=== PATIENT | male | born 1945 | race Caucasian/White ===

== ENCOUNTER → 2016-12-26 | Outpatient (CLI) | payer MEDICARE, BC, OTHER ==
[~2016-12-26] MED LIST: /WARF25TA PO; ALBU17IN INH; ASPI325T PO; ASPI81TA7 PO; ATEN25TA PO; ATENPOW OR; ATIV1TAB10 PO; CINN500C9 PO; CINN500T PO; CLIN300C PO; CLOP75TA2; CLOP75TA2 PO; DIOV320T PO; DOCU10CA PO; Docusate Sod/Senna PO; FENO54TA2 PO; FISH OIL OMEGA OR; FISH OIL OR; FOLI1TAB86 PO; GABA-279 PO; GABA100C PO; LIVA2TAB PO; MILKSUS PO; MIRA3350 PO; MULTTAB4 PO; MYCOLOG TOP; NYST100024 TOP; OMEGA OR; OMEP40CA2 PO; PERCOCET PO; RAPA8CAP PO; SENO8.6T2 PO; TYLE325T5 PO; ULTR50TA PO; VALS1TAB49 PO; ZETI10TA2 PO; [UNRECOGNIZED DRUG - OTHER] OR; [UNRECOGNIZED DRUG - OTHER] OR; acetaminophen OR; fenofibrate
== END ==
LOC: M SMT 13:31
PROVIDERS: ATTEND Urology
DX: Z85.46 Personal history of malignant neoplasm of prostate (principal)

== ENCOUNTER 2017-07-20 01:36 | Observation (INO) | payer MEDICARE, BC, OTHER ==
[~2017-07-20] VITALS: Ht 172.7 cm; Wt 105.8 kg
[~2017-07-20 01:36] MED LIST changes: -NYST100024 TOP; +NYST1POW9 TOP; -SENO8.6T2 PO; +SENO8.6T5 PO; -ULTR50TA PO; +ULTR50TA8 PO; -ZETI10TA2 PO; +ZETI10TA30 PO
[2017-07-20] MEDS ORDERED: CLOP75TA2 PO (01:54)
[2017-07-20] MEDS ORDERED: TYLE1TAB5 PO (01:54)
[2017-07-20] MEDS ORDERED: TYLE500T78 PO (01:54)
[2017-07-20] MEDS ORDERED: GABA-282 PO (01:54)
[2017-07-20] MEDS ORDERED: ADENOSINE 6MG/2ML INJECTION (J0153) IV STA ×3 (01:55)
[2017-07-20] MEDS ORDERED: RAPA8CAP PO (01:57)
[2017-07-20] MEDS ORDERED: ZETI10TA30 PO (02:03)
[2017-07-20 02:08] LABS: BASO % 0.5 % (0.0-1.0); EOS # 0.2 10^3/uL (0.0-0.50); EOS % 4.2 % (0.0-3.0); IMMATURE GRANULOCYTE % 0.3 % (0-0); LYMPH # 1.4 10^3/uL (1.5-4.5); LYMPH % 24.7 % (24.0-44.0); MEAN CORPUSCULAR HEMOGLOBIN 28.9 pg (27.0-33.0); MEAN CORPUSCULAR HGB CONC 32.6 g/dl (32.0-36.5); MEAN CORPUSCULAR VOLUME 88.8 fl (80.0-96.0); MONO # 0.8 10^3/uL (0.0-0.8); MONO % 13.2 % (0.0-5.0); NEUTROPHILS # 3.3 10^3/uL (1.8-7.7); NEUTROPHILS % 57.1 % (36.0-66.0); PLATELET COUNT, AUTOMATED 306 10^3/uL (150-450); RED CELL DISTRIBUTION WIDTH 14.7 % (11.5-14.5); WHITE BLOOD COUNT 5.8 10^3/uL (4.0-10.0)
[2017-07-20] MEDS: METOPROLOL 5 MG/5 ML VIAL IV SCH ×5 (02:26→07:11)
[2017-07-20 02:33] LABS: ANION GAP 12 MEQ/L (8-16); BLOOD UREA NITROGEN 15 MG/DL (7-18); CALCIUM LEVEL 8.8 MG/DL (8.8-10.2); CARBON DIOXIDE LEVEL 26 MEQ/L (21-32); CHLORIDE LEVEL 103 MEQ/L (98-107); CREATININE FOR GFR 1.09 MG/DL (0.70-1.30); GLOMERULAR FILTRATION RATE > 60.0 (>42); GLUCOSE, FASTING 168 MG/DL (83-110); POTASSIUM SERUM 4.1 MEQ/L (3.5-5.1); SODIUM LEVEL 141 MEQ/L (136-145)
--- NOTE | 2017-07-20 02:34 | REP ---
Clinical: Chest pain . Comparison: 04/15/2015 . Findings: Examination is limited by underpenetration which accentuates the pulmonary vasculature and interstitium. The mediastinum and cardiac silhouette are stable and within normal limits for portable technique. No definite focal consolidation. No obvious effusion or pneumothorax. Impression: Limited by underpenetration. No obvious focal consolidation or effusion. Signed by Jamie Crow MD 07/20/2017 02:25 A
[2017-07-20 02:50] VITALS: BP 102/80
[2017-07-20] MEDS ORDERED: NS 1,000 ML IV ONE (03:00)
[2017-07-20] MEDS ORDERED: DIGOXIN INJ 0.5 MG/2 ML AMP (J1160) IV STA (05:38)
[2017-07-20] MEDS: GABAPENTIN 300 MG CAP PO SCH ×2 (09:00→20:37)
[2017-07-20] MEDS ORDERED: TAMSULOSIN 0.4 MG CAP PO SCH (09:00)
[2017-07-20] MEDS ORDERED: ACETAMINOPHEN TAB 650MG DOSE (2X325MG) PO PRN (09:45)
[2017-07-20] MEDS ORDERED: ONDANSETRON 4MG/2ML VIAL (J2405) IV PRN (09:45)
--- NOTE | 2017-07-20 09:45 | ECGEPIP ---
Stationary ECG Study [facility] - ED Test Date: 2017-07-20 Pat Name: GRETA SANDERS Department: Room: - Gender: M Retail Equipment Associate: JEAN : 1945 Requested By: Wilber Diana Order Number: [id number] Reading MD: Wilber Burnett Measurements Intervals [place] Rate: 168 P: [place]: 0 QRS: -21 QRSD: 165 T: 2 QT: 305 QTc: 511 Interpretive Statements UNCERTAIN REGULAR RHYTHM, SUSPECT SVTT VS. ATRIAL FIBRILLATION/FLUTTER INDETERMINATE AXIS RIGHT BUNDLE BRANCH BLOCK ST DEPRESSION, CONSIDER SUBENDOCARDIAL INJURY RHYTHM CHANGE COMPARED TO 04/15/15 Electronically Signed On 07-20-2017 9:44:52 EST by Wilber Burnett
[2017-07-20] MEDS ORDERED: ISOVUE-370 76% 100ML VIAL (Q9967) As Ordered ONE (09:50)
[2017-07-20] MEDS ORDERED: ACET1TAB17 PO (11:02)
--- NOTE | 2017-07-20 11:13 | ECGEPIP ---
Stationary ECG Study [facility] - ED Test Date: 2017-07-20 Pat Name: GRETA SANDERS Department: Room: - Gender: M Etl Informatica Developer: sb : 1945 Requested By: Wilber Diana Order Number: [id number] Reading MD: Yadira Banks Measurements Intervals [place] Rate: 66 P: -9 [place]: 139 QRS: 2 QRSD: 140 T: -17 QT: 421 QTc: 443 Interpretive Statements SINUS RHYTHM WITH OCCASIONAL VENTRICULAR PREMATURE COMPLEXES INDETERMINATE AXIS RIGHT BUNDLE BRANCH BLOCK RHYTHM CHANGE COMPARED 1:51 Electronically Signed On 07-20-2017 11:13:37 EST by Yadira Banks
--- NOTE | 2017-07-20 13:10 | HPEPDOC ---
General Date of Admission Jul 20, 2017 at 09:33 Primary Care Physician: Ray Long Attending Physician: KYLE ALCANTARA MD Chief Complaint The patient is a 71-year-old male admitted with a reason for visit of SVT ( Supraventricular Tachycardia). Source: Patient, Family, RN notes reviewed, Old records Exam Limitations: No limitations Timing/Duration: 24 hours Associated Symptoms: Diaphoresis, Nausea History of Present Illness Mr. Perla is a 71-year-old male who presents to [facility] Emergency Department with Past medical history is significant for: coronary artery disease, dyslipidemia, gastroesophageal reflux disease, benign prostatic hyperplasia, history of prostatic adenocarcinoma status-post radiation, history of urinary tract infection, osteoarthritis, history of adenomatous polyp, history of cerebrovascular accident in 2015, history of colonic angioectasia, history of diverticulosis, history of right knee medial meniscus tear. Patient reports that he was watching [employer] on television last evening at approximately 10:45PM. He went to bed shortly thereafter, but woke up at about 1:00AM feeling clammy and sweaty. He could feel his heart beating in his chest. He called to his , who was awake, stating that he did not feel so good. She advised him to sit in his chair to see if that would provide relief. He moved back and forth between bed and chair, but could not gain adequate relief. He felt extremely nauseous, but did not vomit. No abdominal pain. He felt uncomfortable. At that point EMS was called and patient was transported to the hospital for further evaluation. Patient states that this has never happened before. Emergency Department evaluation revealed supraventricular tachycardia on EKG. Patient was given two doses of Adenosine which did not sonia the arrhythmia. He was then given Metoprolol and Digoxin which appeared to decrease the heart rate. Troponins were initially within normal range, but did increase. Patient admits to a cough productive of white phlegm and chronic pain secondary to arthritis. All other review of systems were negative besides those listed above. Hospitalist service was consulted for patient to be admitted for further medical management. Home Medications Scheduled (Tylenol Pm Extra Strength 500-25 mg) 1 Tab Tab, 1 TAB PO QHS, (Reported) TAKES WITH 325MG TYLENOL Acetaminophen (Tylenol Extra Strength) 500 Mg Tab, 500 MG PO DAILY, (Reported) Acetaminophen (Acetaminophen) 325 Mg Tab, 325 MG PO QHS, (Reported) TAKES WITH TYLENOL PM Clopidogrel Bisulfate (Clopidogrel) 75 Mg Tab, 75 MG PO DAILY, (Reported) Ezetimibe (Zetia) 10 Mg Tab, 10 MG PO DAILY, (Reported) Gabapentin (Gabapentin) 300 Mg Cap, 300 MG PO BID, (Reported) Omeprazole (Omeprazole) 40 Mg Cap, 40 MG PO DAILY, (Reported) Silodosin (Rapaflo) 8 Mg Cap, 8 MG PO DAILY, (Reported) Allergies Coded Allergies: Celecoxib (Unverified Allergy, Unknown, RASH, ITCHING, 11/20/12) Niacin (Verified Allergy, Unknown, 04/29/15) Past Medical History Medical History 1. Coronary artery disease 2. Dyslipidemia 3. Gastroesophageal reflux disease 4. Benign prostatic hyperplasia 5. History of prostatic adenocarcinoma status-post radiation 6. History of urinary tract infection 7. Osteoarthritis 8. History of adenomatous polyp 9. History of cerebrovascular accident in 2014 10. History of colonic angioectasia 11. History of diverticulosis 12. History of right knee medial meniscus tear Surgical History 1. Right knee partial medical menisectomy 2. Right finger open fracture reduction 3. Left hallux fusion 4. Right hallux dorsal cheilectomy 5. Umbilical herniorrhaphy (2009) 6. Colonoscopy (2011, 2012) 7. Total left knee arthroplasty (2011) 8. Total left hip arthroplasty (2014) 9. Echocardiogram (2005, 2014) 10. Appendectomy 11. Bilateral carpal tunnel surgery 12. Coronary angiogram Family History Father: , 58, suicide Mother: , 58, gangrene, bowel perforation Siblings: - Sister: Alive, 64, arthritis Children: - Son: Alive, 52, healthy - Daughter: Alive, 50, healthy - Daughter: Alive, 53, healthy Social History * Smoker: former Smoker Alcohol: heavy (3-4 glasses of wine per day; sometimes additional beer) Drugs: marijuana (Once every 2-3 months) Pets in the home: Dog(s) (1 dog), Cat(s) (1 cat) Occupation: Retired; formerly body/fender work Lives with: Pets: 1 cat, 1 dog Alcohol: 3-4 glasses of wine per day; sometimes additional beer; history of 10- 12 drinks per day Tobacco: 30 pack-year history; 10 years of cigar/pipe smoking, smokeless tobacco Drugs: Marijuana use once every 2-3 months; denies other Travel: No recent travel Caffeine: 3-4 cups of caffeine per day Review of Symptoms Constitutional: Denies: Chills, Fever, Night Sweats, Fatigue, Weight Loss Eyes: Denies: Pain, Vision change ENT: Denies: Head Aches, Ear Pain, Dysphagia, Sinus Congestion, Post Nasal Drip , Sore Throat, Epistaxis Skin: Reports: Bruising (Right hand due to anesthesia s/p CVA), Denies: Rash, Lesions, Breakdown Pulmonary: Denies: Dyspnea, Cough, Pleuritic Chest Pain Cardiovascular: Denies: Chest Pain, Palpitations, Orthopnea, Paroxysmal Noc. Dyspnea, Lt Headedness Gastrointestinal: Denies: Nausea, Vomiting, Abdominal Pain, Diarrhea, Constipation, Melena, Hematochezia Genitourinary: Denies: Dysuria, Frequency, Incontinence, Hematuria, Retention Hematologic: Denies: Bruising, Bleeding Excessively, Enlarged Lymph Nodes Endocrine: Denies: Polydipsia, Polyphagia, Polyuria Musculoskeletal: Denies: Neck Pain, Back Pain, Joint Pain, Muscle Pain, Spasms Neurological: Reports: Weakness (Residual right hand fine motor weakness s/p CVA in 2014), Denies: Numbness, Change in speech, Confusion Psych: Reports: Mood Normal, Denies: Depression, Memory Issues Physical Examination General Exam: Positive: Alert, No Acute Distress Eye Exam: Positive: PERRLA, Conjunctiva & lids normal, EOMI, Negative: Sclera icteric ENT Exam: Positive: Atraumatic, Mucous membr. moist/pink, Pharynx Normal Neck Exam: Positive: Supple, Negative: JVD, thyromegaly Chest Exam: Positive: Clear to auscultation, Normal air movement Heart Exam: Positive: Rate Normal, Regular Rhythm, Normal S1, Normal S2, Negative: Murmurs, Rubs Telemetry: Positive: Sinus, Bradycardia Abdomen Exam: Positive: Normal bowel sounds, Soft, Negative: Tenderness, Hepatospenomegaly Extremity Exam: Positive: Normal pulses, Negative: Clubbing, Cyanosis, Edema Skin Exam: Positive: Nl turgor and temperature, Negative: Breakdown, Lesion Neuro Exam: Positive: Normal Gait (Walks with cane s/p CVA (2014)), Normal Speech, Cranial Nerves 3-12 NL, Reflexes 2+ Psych Exam: Positive: Mental status NL, Mood NL, Oriented x 3 Other physical findings Chest X-Ray Impression: Limited by underpenetration. No obvious focal consolidation or effusion. Vital Signs Vital Signs Date Time Temp Pulse Resp B/P (MAP) Pulse Ox O2 Delivery O2 Flow Rate FiO2 07/20/17 10:05 98.9 60 16 158/85 (109) 97 Room Air Height (in): 68 Weight (kg): 109 BMI (kg): 36.5 Laboratory Data Labs 24H Laboratory Tests 2 07/20/17 02:02: Immature Granulocyte % (Auto) 0.3H, White Blood Count 5.8, Red Blood Count 5.08 , Hemoglobin 14.7, Hematocrit 45.1, Mean Corpuscular Volume 88.8, Mean Corpuscular Hemoglobin 28.9, Mean Corpuscular Hemoglobin Concent 32.6, Red Cell Distribution Width 14.7H, Platelet Count 306, Neutrophils (%) (Auto) 57.1, Lymphocytes (%) (Auto) 24.7, Monocytes (%) (Auto) 13.2H, Eosinophils (%) (Auto) 4.2H, Basophils (%) (Auto) 0.5, Neutrophils # (Auto) 3.3, Lymphocytes # (Auto) 1.4L, Monocytes # (Auto) 0.8, Eosinophils # (Auto) 0.2, Basophils # (Auto) 0.0, Immature Granulocyte # (Auto) 0.0, Nucleated Red Blood Cells % (auto) 0.0, Anion Gap 12, Glomerular Filtration Rate > 60.0, Blood Urea Nitrogen 15, Creatinine 1.09, Sodium Level 141, Potassium Level 4.1, Chloride Level 103, Carbon Dioxide Level 26, Calcium Level 8.8, Total Creatine Kinase 148, Creatine Kinase MB 2.1, Creatine Kinase MB Relative Index 1.41, Troponin I < 0.02, Thyroid Stimulating Hormone (TSH) 3.970H 07/20/17 04:02: Total Creatine Kinase 140, Creatine Kinase MB 2.2, Creatine Kinase MB Relative Index 1.57, Troponin I 0.12#H 07/20/17 08:21: Total Creatine Kinase 118, Creatine Kinase MB 2.5, Creatine Kinase MB Relative Index 2.11, Troponin I 0.24#H CBC/BMP Laboratory Tests 07/20/17 02:02 Red Blood Count 5.08, Mean Corpuscular Volume 88.8, Mean Corpuscular Hemoglobin 28.9, Mean Corpuscular Hemoglobin Concent 32.6, Red Cell Distribution Width 14.7 H, Neutrophils (%) (Auto) 57.1, Lymphocytes (%) (Auto) 24.7, Monocytes (%) (Auto) 13.2 H, Eosinophils (%) (Auto) 4.2 H, Basophils (%) (Auto) 0.5, Neutrophils # (Auto) 3.3, Lymphocytes # (Auto) 1.4 L, Monocytes # (Auto) 0.8, Eosinophils # (Auto) 0.2, Basophils # (Auto) 0.0, Calcium Level 8.8, Total Creatine Kinase 148 Plan / VTE VTE Prophylaxis Ordered?: Yes (Lovenox 40mg SC daily) Plan Plan 1. Supraventricular tachycardia: Differential includes atrial fibrillation, atrial flutter, atrial tachycardia, atrioventricular camron reentry tachycardia, sinus node dysfunction, ventricular fibrillation, and ventricular tachycardia. Obtaining echocardiogram. Admit for observation to the PCU. Continuous cardiac monitoring. Monitor for signs of stability. Continue serial monitoring with EKGs. Could consider cardiology consult. Depending on etiology /character of SVT, could consider initiating beta-jose c, CCB, cardioversion, or transfer for cardiac ablation. Heart rate and blood pressure are currently stable. Will continue to monitor. 2. Elevated troponin: Likely secondary to SVT. Continue monitoring with serial cardiac markers and EKGs. Monitor on PCU. 3. Nausea: Zofran as needed. 4. Coronary artery disease: Continue with Clopidogrel. 5. Gastroesophageal reflux disease: Continue omeprazole. 6. History of prostatic adenocarcinoma: Adjust patient to Flomax 0.4mg daily. 6. Dyslipidemia: Continue ezetimibe. 7. Sciatic neuropathy: Continue Gabapentin. Disposition Admit: PCU Anticipated hospitalization: Observation Attending: Dr. Alcantara Diet: Continue Current Activity: Continue Current Therapy: PT Diagnostics: Check Labs, Repeat Labs in AM, EKG, TTE Anticipated Discharge: Home DONAL YEN Jul 20, 2017 11:23
[2017-07-20 15:15] VITALS: BP 135/93
[2017-07-20] MEDS: EZETIMIBE 10 MG TAB (ZETIA) PO SCH (15:30)
[2017-07-20] MEDS: CLOPIDOGREL 75 MG TAB PO SCH (15:30)
[2017-07-20] MEDS: OMEPRAZOLE 20 MG CAP PO SCH (15:30)
[2017-07-20] MEDS: ENOXAPARIN 40 MG/0.4 ML SYRINGE (J1650) SC SCH ×2 (15:31→17:39)
[2017-07-20] MEDS: RAPAFLO 8 MG PO SCH (17:39)
[2017-07-20 20:00] VITALS: BP 138/76
[2017-07-21] VITALS: BP 148/79
[2017-07-21 04:00] VITALS: BP 131/83
[2017-07-21 05:37] LABS: MEAN CORPUSCULAR HEMOGLOBIN 28.5 pg (27.0-33.0); MEAN CORPUSCULAR HGB CONC 31.9 g/dl (32.0-36.5); MEAN CORPUSCULAR VOLUME 89.3 fl (80.0-96.0); PLATELET COUNT, AUTOMATED 255 10^3/uL (150-450); RED CELL DISTRIBUTION WIDTH 14.8 % (11.5-14.5); WHITE BLOOD COUNT 5.8 10^3/uL (4.0-10.0)
[2017-07-21 05:55] LABS: ALBUMIN 3.2 GM/DL (3.2-5.2); ALBUMIN/GLOBULIN RATIO 0.86 (1.00-1.93); ALT/SGPT 41 U/L (12-78); ANION GAP 8 MEQ/L (8-16); AST/SGOT 25 U/L (7-37); BILIRUBIN,DIRECT < 0.1 MG/DL (0.0-0.2); BILIRUBIN,TOTAL 0.4 MG/DL (0.2-1.0); BLOOD UREA NITROGEN 17 MG/DL (7-18); CALCIUM LEVEL 8.6 MG/DL (8.8-10.2); CARBON DIOXIDE LEVEL 27 MEQ/L (21-32); CHLORIDE LEVEL 106 MEQ/L (98-107); CHOLESTEROL LEVEL 174 MG/DL (<200); CREATININE FOR GFR 0.77 MG/DL (0.70-1.30); GLOMERULAR FILTRATION RATE > 60.0 (>42); GLUCOSE, FASTING 134 MG/DL (83-110); POTASSIUM SERUM 3.9 MEQ/L (3.5-5.1); SODIUM LEVEL 141 MEQ/L (136-145); T UPTAKE 41 % (33-40); TOTAL PROTEIN 6.9 GM/DL (6.4-8.2); TRIGLYCERIDES LEVEL 197 MG/DL (<150)
[2017-07-21 06:02] LABS: ALKALINE PHOSPHATASE 83 U/L (45-117); THYROXINE (T4) 5.9 UG/DL (4.5-12.0)
[2017-07-21 08:00] VITALS: BP 132/78
[2017-07-21] MEDS: CLOPIDOGREL 75 MG TAB PO SCH (08:42)
[2017-07-21] MEDS: RAPAFLO 8 MG PO SCH (08:42)
[2017-07-21] MEDS: GABAPENTIN 300 MG CAP PO SCH (08:42)
[2017-07-21] MEDS: EZETIMIBE 10 MG TAB (ZETIA) PO SCH (08:43)
[2017-07-21] MEDS: OMEPRAZOLE 20 MG CAP PO SCH (08:44)
[2017-07-21] MEDS: ENOXAPARIN 40 MG/0.4 ML SYRINGE (J1650) SC SCH (08:45)
--- NOTE | 2017-07-21 08:46 | DS.PDOC ---
Discharge Summary General Date of Admission Jul 20, 2017 at 09:33 Date of Discharge 07/21/2017 Primary Care Physician: Ray Long Attending Physician: KYLE ALCANTARA MD Discharge Summary PROCEDURES PERFORMED DURING STAY: None. ADMITTING DIAGNOSES: 1. Supraventricular tachycardia. SECONDARY DIAGNOSES: 1. Coronary artery disease. 2. Dyslipidemia. 3. Gastroesophageal reflux disease. 4. Benign prostatic hyperplasia. 5. Osteoarthritis. 6. History of urinary tract infection. 7. History of prostatic adenocarcinoma status-post radiation. DISCHARGE DIAGNOSES: 1. Supraventricular tachycardia. COMPLICATIONS/CHIEF COMPLAINT: SVT (Supraventricular Tachycardia). HISTORY OF PRESENT ILLNESS: Mr. Perla is a 71-year-old male who presents to [facility]'s Emergency Department with supraventricular tachycardia. Past medical history is significant for: coronary artery disease, dyslipidemia, gastroesophageal reflux disease, benign prostatic hyperplasia, history of prostatic adenocarcinoma status-post radiation, history of urinary tract infection, osteoarthritis, history of adenomatous polyp, history of cerebrovascular accident in 2014, history of colonic angioectasia, history of diverticulosis, history of right knee medial meniscus tear. Patient reports that he was watching [employer] on television last evening at approximately 10:45PM. He went to bed shortly thereafter, but woke up at about 1:00AM feeling clammy and sweaty. He could feel his heart beating in his chest. He called to his , who was awake, stating that he did not feel so good. She advised him to sit in his chair to see if that would provide relief. He moved back and forth between bed and chair, but could not gain adequate relief. He felt extremely nauseous, but did not vomit. No abdominal pain. He felt uncomfortable. At that point EMS was called and patient was transported to the hospital for further evaluation. Patient states that this has never happened before. Emergency Department evaluation revealed supraventricular tachycardia on EKG. Patient was given two doses of Adenosine which did not sonia the arrhythmia. He was then given Metoprolol and Digoxin which appeared to decrease the heart rate. Troponins were initially within normal range, but did increase. Patient admits to a cough productive of white phlegm and chronic pain secondary to arthritis. All other review of systems were negative besides those listed above. Hospitalist service was consulted for patient to be admitted for further medical management. HOSPITAL COURSE: Patient was admitted for observation to the PCU. He was monitored overnight on telemetry with no events noted. Obtaining echocardiogram. Cardiac markers were monitored and decreased appropriately. Blood pressure remained stable overnight. Zofran provided, as needed for nausea. Continued patient's Clopidogrel, Omeprazole, Rapaflo, and Gabapentin. Patient remained asymptomatic overnight and was stable at time of discharge. DISCHARGE MEDICATIONS: Please see below. ALLERGIES: Please see below. PHYSICAL EXAMINATION ON DISCHARGE: VITAL SIGNS: Please see below. GENERAL: Well nourished, well developed male, appears stated age, alert and conversant, no acute distress HEENT: Atraumatic, normocephalic, PERRL, EOMI, oral mucosa appears pink and moist, nasal septum appears midline, nares are patent NECK: Soft, supple, trachea midline, no lymphadenopathy CARDIOVASCULAR EXAMINATION: Regular rate and rhythm, normal S1 and S2, no murmur , rub, click RESPIRATORY EXAMINATION: Clear to auscultation bilaterally, adequate inspiratory and expiratory airway excursion, no wheeze, rhonchi, crackles ABDOMINAL EXAMINATION: Round, soft, non-tender, non-distended, bowel sounds appreciated, no organomegaly, no rebound or guarding EXTREMITIES: Radial and posterior tibial pulses equal, symmetrical, +2, no peripheral edema SKIN: Warm, dry, intact NEUROLOGICAL EXAMINATION: CN II-XII grossly intact PSYCHIATRIC EXAMINATION: Alert and conversant, pleasant LABORATORY DATA: Please see below. IMAGING: Portable chest x-ray IMPRESSION: Limited by underpenetration. No obvious focal consolidation or effusion. PROGNOSIS: Stable. ACTIVITY: As tolerated. DIET: No added salt. DISCHARGE PLAN: AVOID DRIVING A MOTOR VEHICLE OR HEAVY MACHINERY IF SYMPTOMS RECUR. Immediately followup early next week with your doctor and professor of communication arts to monitor your heart rate. Return to the emergency room if symptoms recur. DISPOSITION: Home. DISCHARGE INSTRUCTIONS: 1. Could consider starting a beta-jose c, such as Metoprolol, to control heart rate if it gets > 100. 2. Could consider placing a Holter monitor or implantable loop recorder for heart monitoring. 3. Could consider obtaining an echocardiogram out-patient. 4. Advised against driving until seen by cardiology. 5. Continue with current home medications. 6. Follow-up with cardiology in one week. 7. Follow-up with primary care provider in 7-10 days. ITEMS TO FOLLOWUP ON ON OUTPATIENT: 1. Supraventricular tachycardia. DISCHARGE CONDITION: Stable. TIME SPENT ON DISCHARGE: Greater than 30 minutes. Vital Signs/I&Os Vital Signs Date Time Temp Pulse Resp B/P (MAP) Pulse Ox O2 Delivery O2 Flow Rate FiO2 07/21/17 04:00 97.5 57 20 131/83 (99) 97 Room Air 07/20/17 20:00 Laboratory Data Labs 24H Laboratory Tests 2 07/20/17 08:21: Total Creatine Kinase 118, Creatine Kinase MB 2.5, Creatine Kinase MB Relative Index 2.11, Troponin I 0.24#H 07/20/17 12:03: Total Creatine Kinase 113, Creatine Kinase MB 2.7, Creatine Kinase MB Relative Index 2.38, Troponin I 0.32#H 07/20/17 17:53: Total Creatine Kinase 111, Creatine Kinase MB 2.3, Creatine Kinase MB Relative Index 2.07, Troponin I 0.28H 07/20/17 23:52: Total Creatine Kinase 154, Creatine Kinase MB 2.0, Creatine Kinase MB Relative Index 1.29, Troponin I 0.25H 07/21/17 04:49: Nucleated Red Blood Cells % (auto) 0.0, Anion Gap 8, Glomerular Filtration Rate > 60.0, Calcium Level 8.6L, Aspartate Amino Transf (AST/SGOT) 25, Alanine Aminotransferase (ALT/SGPT) 41, Alkaline Phosphatase 83, Total Bilirubin 0.4, Direct Bilirubin < 0.1, Total Creatine Kinase 91, Creatine Kinase MB 1.9, Creatine Kinase MB Relative Index 2.08, Troponin I 0.18#H, Total Protein 6.9, Albumin 3.2, Albumin/Globulin Ratio 0.86L, Triglycerides Level 197H, Total Cholesterol 174, LDL Cholesterol 80.6, Non-HDL Cholesterol (LDL + VLDL) 120, Total HDL Cholesterol 54, Cholesterol/HDL Ratio 3.222, Thyroid Stimulating Hormone (TSH) 2.760, Free Thyroxine Index 2.4, Thyroxine (T4) 5.9, Triiodothyronine (T3) Uptake 41H, Digoxin Level 0.5 CBC/BMP Laboratory Tests 07/21/17 04:49 Red Blood Count 4.85, Mean Corpuscular Volume 89.3, Mean Corpuscular Hemoglobin 28.5, Mean Corpuscular Hemoglobin Concent 31.9 L, Red Cell Distribution Width 14.8 H Discharge Medications Scheduled (Tylenol Pm Extra Strength 500-25 mg) 1 Tab Tab, 1 TAB PO QHS, (Reported) TAKES WITH 325MG TYLENOL Acetaminophen (Tylenol Extra Strength) 500 Mg Tab, 500 MG PO DAILY, (Reported) Acetaminophen (Acetaminophen) 325 Mg Tab, 325 MG PO QHS, (Reported) TAKES WITH TYLENOL PM Clopidogrel Bisulfate (Clopidogrel) 75 Mg Tab, 75 MG PO DAILY, (Reported) Ezetimibe (Zetia) 10 Mg Tab, 10 MG PO DAILY, (Reported) Gabapentin (Gabapentin) 300 Mg Cap, 300 MG PO BID, (Reported) Omeprazole (Omeprazole) 40 Mg Cap, 40 MG PO DAILY, (Reported) Silodosin (Rapaflo) 8 Mg Cap, 8 MG PO DAILY, (Reported) Allergies Coded Allergies: Celecoxib (Unverified Allergy, Unknown, RASH, ITCHING, 11/20/12) Niacin (Verified Allergy, Unknown, 04/29/15) DONAL YEN DO Jul 21, 2017 07:11
--- NOTE | 2017-07-21 10:44 | ECGEPIP ---
Stationary ECG Study [facility] - ED Test Date: 2017-07-20 Pat Name: GRETA SANDERS Department: Room: [place] [address] Gender: M Chemistry Associate: alex : 1945 Requested By: Wilber Diana Order Number: [id number] Reading MD: Yadira Banks Measurements Intervals [place] Rate: 138 P: 174 VT: 149 QRS: -9 QRSD: 166 T: -12 QT: 311 QTc: 472 Interpretive Statements SINUS TACHYCARDIA, POSSIBLE FLUTTER INDETERMINATE AXIS RIGHT BUNDLE BRANCH BLOCK Electronically Signed On 07-21-2017 10:43:43 EST by Yadira Banks
--- NOTE | 2017-07-30 07:23 | REP ---
Clinical: Acute chest pain. Technique: Axial contrast enhanced images from the thoracic inlet to the upper abdomen using 100 ml Isovue 370 intravenous contrast material with coronal and sagittal re-formations. Images obtained using angiographic technique. Findings: Satisfactory enhancement of the pulmonary vasculature is achieved and no filling defects are identified to suggest pulmonary embolus. Thoracic aorta is normal caliber without aneurysm or dissection. Mild bibasilar atelectasis (right greater than left) is appreciated along with cardiomegaly and findings to suggest mild pulmonary vascular congestion. No effusion or pneumothorax. Tracheobronchial tree is patent. No adenopathy. Impression: No evidence for pulmonary embolus. Mild basilar atelectasis. Cardiomegaly and possibly chronic mild pulmonary vascular congestion. Signed by Jamie Crow MD 07/30/2017 04:15 A
== END 2017-07-21 09:44 | disposition home or self-care (01) ==
LOC: M ED 01:36 → M ED INP 09:33 → M PCU 15:13
PROVIDERS: ADMIT General Practice; ATTEND General Practice
DX: I47.1 Supraventricular tachycardia (principal); R79.89 Other specified abnormal findings of blood chemistry; R11.0 Nausea; I25.10 Atherosclerotic heart disease of native coronary artery without angina pectoris; E78.5 Hyperlipidemia, unspecified; K21.9 Gastro-esophageal reflux disease without esophagitis; N40.0 Benign prostatic hyperplasia without lower urinary tract symptoms; M19.90 Unspecified osteoarthritis, unspecified site; G57.00 Lesion of sciatic nerve, unspecified lower limb; Z87.440 Personal history of urinary (tract) infections; Z85.46 Personal history of malignant neoplasm of prostate; Z92.3 Personal history of irradiation; Z86.73 Personal history of transient ischemic attack (TIA), and cerebral infarction without residual deficits; G89.29 Other chronic pain; Z79.899 Other long term (current) drug therapy; Z79.02 Long term (current) use of antithrombotics/antiplatelets; Z88.8 Allergy status to other drugs, medicaments and biological substances; Z87.891 Personal history of nicotine dependence
CPT/HCPCS: 36415; 71010; 71275; 80048; 80061; 80076; 80162; 82550; 82553; 84436; 84443; 84479; 84484; 85025; 85027; 93005; 93041; 94760; 96374; 96375; 97161; 99291; G0378; G8978; G8979; G8980; J0153; J1160; Q9967

== ENCOUNTER 2017-12-01 18:07 | Emergency (ER) | payer MEDICARE, BC, OTHER ==
[2017-12-01] MEDS: ASPIRIN 81 MG CHEW TABLET PO (18:39)
[2017-12-01] MEDS: METOPROLOL 5 MG/5 ML VIAL IV ×3 (18:40→18:50)
[2017-12-01] MEDS: NS 1,000 ML IV (18:40)
[2017-12-01] MEDS: METOPROLOL TART 50 MG TAB PO (18:45)
[2017-12-01 18:49] LABS: BASO % 0.6 % (0.0-1.0); EOS # 0.2 10^3/uL (0.0-0.50); EOS % 3.6 % (0.0-3.0); HEMOGLOBIN 14.1 g/dl (13.5-17.5); IMMATURE GRANULOCYTE % 0.2 % (0-3.0); LYMPH # 1.8 10^3/uL (1.5-4.5); LYMPH % 27.9 % (24.0-44.0); MEAN CORPUSCULAR HEMOGLOBIN 27.4 pg (27.0-33.0); MEAN CORPUSCULAR HGB CONC 31.3 g/dl (32.0-36.5); MEAN CORPUSCULAR VOLUME 87.5 fl (80.0-96.0); MONO # 0.9 10^3/uL (0.0-0.8); MONO % 14.5 % (0.0-5.0); NEUTROPHILS # 3.4 10^3/uL (1.8-7.7); NEUTROPHILS % 53.2 % (36.0-66.0); PLATELET COUNT, AUTOMATED 328 10^3/uL (150-450); RED BLOOD COUNT 5.14 10^6/uL (4.30-6.10); RED CELL DISTRIBUTION WIDTH 14.2 % (11.5-14.5); WHITE BLOOD COUNT 6.4 10^3/uL (4.0-10.0)
[2017-12-01 18:58] LABS: INR 0.93; PROTHROMBIN TIME 12.5 SECONDS (12.4-14.5)
[2017-12-01 19:01] LABS: ANION GAP 6 MEQ/L (8-16); BLOOD UREA NITROGEN 13 MG/DL (7-18); CALCIUM LEVEL 9.1 MG/DL (8.8-10.2); CARBON DIOXIDE LEVEL 27 MEQ/L (21-32); CHLORIDE LEVEL 107 MEQ/L (98-107); CK-MB VALUE MASS < 1.0 NG/ML (<3.6); CPK CREATINE PHOSPHOKINASE 91 U/L (39-308); CREATININE FOR GFR 0.77 MG/DL (0.70-1.30); GLOMERULAR FILTRATION RATE > 60.0 (>42); GLUCOSE, FASTING 137 MG/DL (70-100); MB/CK RELATIVE INDEX 1.09 (< OR =4); POTASSIUM SERUM 4.5 MEQ/L (3.5-5.1); SODIUM LEVEL 140 MEQ/L (136-145); TROPONIN I < 0.02 NG/ML (< 0.10)
== END 2017-12-01 20:37 | disposition home or self-care (01) ==
LOC: M ED 18:07
DX: I47.1 Supraventricular tachycardia (principal); I49.9 Cardiac arrhythmia, unspecified; I45.10 Unspecified right bundle-branch block; I51.9 Heart disease, unspecified; I10 Essential (primary) hypertension; Z98.61 Coronary angioplasty status; Z85.46 Personal history of malignant neoplasm of prostate; F17.200 Nicotine dependence, unspecified, uncomplicated; Z82.49 Family history of ischemic heart disease and other diseases of the circulatory system
CPT/HCPCS: 71045

== ENCOUNTER → 2018-01-11 | Outpatient (REF) | payer MEDICARE, BC, OTHER ==
[2018-01-11 16:55] LABS: PROSTATIC SPECIFIC AG MONITOR 0.11 NG/ML (< 4.0)
== END ==
LOC: M LABDRAW1 14:04
DX: Z85.46 Personal history of malignant neoplasm of prostate (principal)
CPT/HCPCS: 84153

== ENCOUNTER 2018-01-22 06:28 | Emergency (ER) | payer MEDICARE, BC, OTHER ==
[2018-01-22 06:55] LABS: BASO # 0.1 10^3/uL (0.0-0.2); BASO % 0.6 % (0.0-1.0); EOS # 0.3 10^3/uL (0.0-0.50); HEMATOCRIT 47.9 % (42.0-52.0); HEMOGLOBIN 14.7 g/dl (13.5-17.5); IMMATURE GRANULOCYTE % 0.4 % (0-3.0); LYMPH # 1.6 10^3/uL (1.5-4.5); LYMPH % 19.9 % (24.0-44.0); MEAN CORPUSCULAR HEMOGLOBIN 26.8 pg (27.0-33.0); MEAN CORPUSCULAR HGB CONC 30.7 g/dl (32.0-36.5); MEAN CORPUSCULAR VOLUME 87.4 fl (80.0-96.0); MONO % 12.4 % (0.0-5.0); NEUTROPHILS % 62.7 % (36.0-66.0); PLATELET COUNT, AUTOMATED 374 10^3/uL (150-450); RED BLOOD COUNT 5.48 10^6/uL (4.30-6.10); RED CELL DISTRIBUTION WIDTH 15.2 % (11.5-14.5)
[2018-01-22] MEDS: METOPROLOL 5 MG/5 ML VIAL IV ×3 (07:05→07:10)
[2018-01-22 07:19] LABS: ANION GAP 6 MEQ/L (8-16); BLOOD UREA NITROGEN 12 MG/DL (7-18); CALCIUM LEVEL 9.1 MG/DL (8.8-10.2); CARBON DIOXIDE LEVEL 28 MEQ/L (21-32); CHLORIDE LEVEL 109 MEQ/L (98-107); CK-MB VALUE MASS < 1.0 NG/ML (<3.6); CPK CREATINE PHOSPHOKINASE 86 U/L (39-308); CREATININE FOR GFR 1.01 MG/DL (0.70-1.30); GLOMERULAR FILTRATION RATE > 60.0 (>42); GLUCOSE, FASTING 149 MG/DL (70-100); MB/CK RELATIVE INDEX 1.16 (< OR =4); POTASSIUM SERUM 5.3 MEQ/L (3.5-5.1); SODIUM LEVEL 143 MEQ/L (136-145); TROPONIN I < 0.02 NG/ML (< 0.10)
== END 2018-01-22 08:51 | disposition home or self-care (01) ==
LOC: M ED 06:28
DX: I47.1 Supraventricular tachycardia (principal); I45.10 Unspecified right bundle-branch block; I48.91 Unspecified atrial fibrillation; I51.9 Heart disease, unspecified; I10 Essential (primary) hypertension; Z79.899 Other long term (current) drug therapy; Z88.8 Allergy status to other drugs, medicaments and biological substances
CPT/HCPCS: 71045

== ENCOUNTER → 2018-06-02 | Outpatient (REF) | payer MEDICARE, OTHER | LOC: M SFHCLERA 15:57 | DX: R19.7 Diarrhea, unspecified (principal) | CPT/HCPCS: 87507 ==

== ENCOUNTER → 2018-09-05 | Outpatient (REF) | payer MEDICARE, OTHER ==
[~2018-09-05] MED LIST changes: +ACET1TAB55 PO; +GABA-1171 PO; -GABA-279 PO; +GABA-843 PO; +METO1TAB87; +MILK120011 PO; -MILKSUS PO; +TYLE1TAB5 PO; +TYLE500T78 PO; +VALS1TAB49
[2018-09-05 13:48] LABS: BASO % 0.6 % (0.0-1.0); EOS # 0.3 10^3/uL (0.0-0.50); EOS % 4.1 % (0.0-3.0); HEMATOCRIT 44.3 % (42.0-52.0); LYMPH # 1.2 10^3/uL (1.5-4.5); LYMPH % 18.8 % (24.0-44.0); MEAN CORPUSCULAR HEMOGLOBIN 27.4 pg (27.0-33.0); MEAN CORPUSCULAR HGB CONC 31.6 g/dl (32.0-36.5); MEAN CORPUSCULAR VOLUME 86.7 fl (80.0-96.0); MONO # 0.8 10^3/uL (0.0-0.8); MONO % 12.4 % (0.0-5.0); NEUTROPHILS % 63.9 % (36.0-66.0); PLATELET COUNT, AUTOMATED 370 10^3/uL (150-450); RED BLOOD COUNT 5.11 10^6/uL (4.30-6.10); WHITE BLOOD COUNT 6.3 10^3/uL (4.0-10.0)
[2018-09-05 14:10] LABS: C REACTIVE PROTEIN QUANTITATIV < 0.30 MG/DL (0.00-0.30); RHEUMATOID FACTOR QUANT < 10.0 IU/ML (<15.0); URIC ACID 5.1 MG/DL (3.5-7.2)
[2018-09-05 14:35] LABS: ERYTHROCYTE SEDIMENTATION RATE 10 mm/hr (0-20)
[2018-09-07 00:07] LABS: ANTINUCLEAR ANTIBODIES DIRECT Negative (Negative); Lyme Disease IgG/IgM Antibodie <0.91 ISR (0.00-0.90); Lyme Disease IgM Ab Quantitati <0.80 index (0.00-0.79)
== END ==
LOC: M LABDRAW1 13:25
PROVIDERS: ATTEND Physician Assistant Surgical
DX: M17.11 Unilateral primary osteoarthritis, right knee (principal)

== ENCOUNTER → 2018-10-06 | Outpatient (REF) | payer MEDICARE, OTHER | LOC: M SFHCLERA 09:27 | PROVIDERS: ATTEND Physician Assistant | DX: N39.0 Urinary tract infection, site not specified (principal) | CPT/HCPCS: 81002; 87088; 87186; G0463 ==

== ENCOUNTER → 2018-10-23 | Outpatient (REF) | payer MEDICARE, OTHER ==
[2018-10-23 13:56] LABS: APPEARANCE, URINE CLEAR (CLEAR); BACTERIA, URINE AUTO NEGATIVE (NEGATIVE); BILIRUBIN, URINE AUTO NEGATIVE (NEGATIVE); BLOOD, URINE BLOOD NEGATIVE (NEGATIVE); COLOR, URINE YELLOW (YELLOW); GLUCOSE, URINE (UA) AUTO NEGATIVE (NEGATIVE); KETONE, URINE AUTO NEGATIVE (NEGATIVE); LEUKOCYTE ESTERASE, URINE AUTO NEGATIVE (NEGATIVE); MUCUS, URINE SMALL (NEGATIVE); NITRITE, URINE AUTO NEGATIVE (NEGATIVE); PROTEIN, URINE AUTO NEGATIVE (NEGATIVE); RBC, URINE AUTO 1 /HPF (0-3); SPECIFIC GRAVITY URINE AUTO 1.019 (1.002-1.035); SQUAMOUS EPITHELIAL CELL UR AU 0 /HPF (0-6); UROBILINOGEN, URINE AUTO 0.2 mg/dL (0.0-2.0); WBC, URINE AUTO 0 /HPF (0-3)
== END ==
LOC: M SMT 12:57
PROVIDERS: ATTEND Nurse Practitioner Women's Health
DX: N39.0 Urinary tract infection, site not specified (principal)
CPT/HCPCS: 81001; 87086; G0463

== ENCOUNTER → 2018-10-28 | Outpatient (CLI) | payer MEDICARE, BC, OTHER ==
--- NOTE | 2018-10-28 15:42 | REP ---
BILATERAL RENAL ULTRASOUND: 10/28/2018. Clinical history: UTI, low back pain. Personal history of prostate carcinoma. Comparison: CT 10/30/2013. Findings: Right kidney 12.4 x 5.5 x 5.7 cm and the left 13.1 x 5.7 x 6.4 cm. Cortical echogenicity and thickness is normal bilaterally. There is no hydronephrosis or hydroureter on either side. Some linear echogenic foci are noted in the hilar regions. Calcified vessels. No definite parenchymal or collecting system stones. No cyst or solid mass. No perinephric fluid. The prevoid measurements of 8.2 x 7 x 5.3 cm give a calculated volume 199 mL and postvoid 3.6 x 3.6 x 2.4 cm give calculated volume of 25 mL which is a postvoid residual of 12.6%. Bilateral ureteral jets were observed. Impression: 1. Normal cortical thickness and echogenicity with no atrophy, hydronephrosis, cyst or solid mass. 2. No hydronephrosis or hydroureter or evidence of stone disease. 3. Some linear echogenicities suggesting calcification in arteries in the renal hilar regions. 4. Bladder volume almost 200 mL with a postvoid residual of 12.6%. Good bilateral ureteral jets. No other finding. Electronically Signed by Sanju Velez MD 10/28/2018 07:57 P
== END ==
LOC: M RAD 12:39
PROVIDERS: ATTEND Nurse Practitioner Women's Health
DX: N39.0 Urinary tract infection, site not specified (principal); M54.5 Low back pain; Z85.46 Personal history of malignant neoplasm of prostate

== ENCOUNTER → 2018-12-23 | Outpatient (CLI) | payer MEDICARE, BC, OTHER ==
[~2018-12-23] MED LIST changes: -/WARF25TA PO; +ASPI-1 PO; -ASPI325T PO; +COUM1TAB18 PO; +OXYC1TAB23 PO; -PERCOCET PO; +RAPA8CAP4 PO
== END ==
LOC: M SMT 08:52
PROVIDERS: ATTEND Nurse Practitioner Women's Health
DX: Z85.46 Personal history of malignant neoplasm of prostate (principal)

== ENCOUNTER → 2019-07-01 | Outpatient (REF) | payer MEDICARE, OTHER ==
[~2019-07-01] MED LIST changes: +OMEP40CA97 PO; +ZETI10TA16 PO; -ZETI10TA30 PO
[2019-07-03 00:07] LABS: Lyme Disease IgG/IgM Antibodie <0.91 ISR (0.00-0.90); Lyme Disease IgM Ab Quantitati <0.80 index (0.00-0.79)
== END ==
LOC: M LAB REF 12:14
PROVIDERS: ATTEND Internal Medicine
DX: Z11.59 Encounter for screening for other viral diseases (principal)

== ENCOUNTER → 2019-07-04 | Outpatient (REF) | payer MEDICARE, OTHER | LOC: M LABDRAW1 15:29 | PROVIDERS: ATTEND Nurse Practitioner Women's Health | DX: Z85.46 Personal history of malignant neoplasm of prostate (principal) ==

== ENCOUNTER 2019-08-15 11:56 | Emergency (ER) | payer MEDICARE, BC, OTHER ==
[~2019-08-15] VITALS: Ht 167.6 cm; Wt 105.4 kg
[~2019-08-15 11:56] MED LIST changes: -METO1TAB87; +METO1TAB87 PO; -VALS1TAB49; -VALS1TAB49 PO; +VALS40TA9; +VALS40TA9 PO
[2019-08-15] MEDS ORDERED: LIVA4TAB PO (12:09)
[2019-08-15] MEDS ORDERED: ASPI81TA85 PO (12:09)
[2019-08-15] MEDS ORDERED: ELIQ5TAB PO (12:09)
[2019-08-15 13:00] LABS: BASO % 0.5 % (0.0-1.0); EOS # 0.2 10^3/uL (0.0-0.5); EOS % 3.1 % (0.0-3.0); HEMATOCRIT 48.4 % (42.0-52.0); HEMOGLOBIN 14.4 g/dl (13.5-17.5); MEAN CORPUSCULAR HEMOGLOBIN 26.5 pg (27.0-33.0); MEAN CORPUSCULAR HGB CONC 29.8 g/dl (32.0-36.5); MEAN CORPUSCULAR VOLUME 89.1 fl (80.0-96.0); MONO # 0.8 10^3/uL (0.0-0.8); MONO % 10.4 % (0.0-5.0); NEUTROPHILS # 5.3 10^3/uL (1.5-8.5); NEUTROPHILS % 71.7 % (36.0-66.0); PLATELET COUNT, AUTOMATED 419 10^3/uL (150-450); RED BLOOD COUNT 5.43 10^6/uL (4.30-6.10); WHITE BLOOD COUNT 7.4 10^3/uL (4.0-10.0)
[2019-08-15] MEDS ORDERED: NS 1,000 ML IV SCH (13:00)
[2019-08-15 13:14] LABS: INR 1.3; PROTHROMBIN TIME 15.9 SECONDS (11.8-14.0)
--- NOTE | 2019-08-15 13:25 | REP ---
Clinical: Cough and dyspnea . Comparison: 01/22/2018 . Findings: The mediastinum and cardiac silhouette are stable and within normal limits for portable technique. The lung fernandez are clear without acute consolidation, effusion, or pneumothorax. Skeletal structures are intact. Impression: No acute cardiopulmonary process appreciated. Electronically Signed by Jamie Crow MD 08/15/2019 01:17 P
[2019-08-15 13:33] LABS: BLOOD UREA NITROGEN 15 MG/DL (7-18); CALCIUM LEVEL 9.4 MG/DL (8.8-10.2); CARBON DIOXIDE LEVEL 29 MEQ/L (21-32); CHLORIDE LEVEL 105 MEQ/L (98-107); CK-MB VALUE MASS < 1.0 NG/ML (<3.6); CPK CREATINE PHOSPHOKINASE 59 U/L (39-308); CREATININE FOR GFR 0.86 MG/DL (0.70-1.30); GLOMERULAR FILTRATION RATE > 60.0 (>42); GLUCOSE, FASTING 89 MG/DL (70-100); MB/CK RELATIVE INDEX 1.69 (< OR =4); POTASSIUM SERUM 4.8 MEQ/L (3.5-5.1); SODIUM LEVEL 140 MEQ/L (136-145); TROPONIN I < 0.02 NG/ML (< 0.10)
[2019-08-15] MEDS ORDERED: ISOVUE-370 76% 100ML VIAL (Q9967) As Ordered ONE (13:35)
--- NOTE | 2019-08-15 13:59 | REP ---
Clinical: Acute chest pain and shortness of breath. Comparison: 07/20/2017 . Technique: Axial contrast enhanced images from the thoracic inlet to the upper abdomen using 100 ml Isovue 370 intravenous contrast material with coronal and sagittal re-formations. Findings: Satisfactory enhancement of the pulmonary vasculature is achieved and no filling defects are identified to suggest pulmonary embolus. Atherosclerotic changes to the thoracic aorta and coronary arteries noted without aortic aneurysm or dissection. Cardiomegaly is appreciated without pericardial effusion. The lung fernandez demonstrate mild dependent changes along with chronic right basilar fibroatelectatic changes which remain stable compared to 2017. No consolidation. No acute effusion. No pneumothorax. No significant adenopathy. Impression: No evidence for pulmonary embolus. Chronic basilar changes (right greater than left). Stable cardiomegaly. Electronically Signed by Jamie Crow MD 08/15/2019 01:51 P
[2019-08-15 14:45] VITALS: BP 147/81
--- NOTE | 2019-08-17 15:02 | ECGEPIP ---
[facility] - ED Test Date: 2019-08-15 Pat Name: GRETA SANDERS Department: Room: - Gender: Male Change Booth Attendant: sundar : 1945 Requested By: TRISH Rhodes Order Number: [id number] Reading MD: Wilber Burnett Measurements Intervals [place] Rate: 56 P: 9 FL: 148 QRS: 43 QRSD: 157 T: -5 QT: 467 QTc: 453 Interpretive Statements SINUS BRADYCARDIA INDETERMINATE AXIS RIGHT BUNDLE BRANCH BLOCK SIMILAR TO 01/22/18 Electronically Signed on 08-17-2019 15:02:00 EST by Wilber Burnett
== END 2019-08-15 15:04 | disposition home or self-care (01) ==
LOC: M ED 11:56
DX: B34.9 Viral infection, unspecified (principal); R53.83 Other fatigue; I11.9 Hypertensive heart disease without heart failure; R00.1 Bradycardia, unspecified; I45.10 Unspecified right bundle-branch block; Z79.82 Long term (current) use of aspirin; Z79.899 Other long term (current) drug therapy; Z88.8 Allergy status to other drugs, medicaments and biological substances; Z95.1 Presence of aortocoronary bypass graft; Z95.828 Presence of other vascular implants and grafts
CPT/HCPCS: 71045; 71275; 80048; 82550; 82553; 83605; 84484; 85025; 85610; 93005; 93041; 94760; 96360; 99285; Q9967

== ENCOUNTER → 2019-08-26 | Outpatient (REF) | payer MEDICARE, OTHER ==
[~2019-08-26] MED LIST changes: +ASPI81TA85 PO; +ELIQ5TAB PO; +LIVA4TAB PO
== END ==
LOC: M LAB REF 12:25
PROVIDERS: ATTEND Internal Medicine
DX: I10 Essential (primary) hypertension (principal)

== ENCOUNTER → 2020-05-03 | Outpatient (REF) | payer MEDICARE, OTHER ==
[~2020-05-03] MED LIST changes: -ASPI81TA85 PO; +ASPI81TA86 PO
[2020-05-03 16:04] LABS: APPEARANCE, URINE HAZY (CLEAR); BACTERIA, URINE AUTO 1+ (NEGATIVE); BILIRUBIN, URINE AUTO NEGATIVE (NEGATIVE); BLOOD, URINE BLOOD 1+ (NEGATIVE); COLOR, URINE YELLOW (YELLOW); GLUCOSE, URINE (UA) AUTO NEGATIVE (NEGATIVE); KETONE, URINE AUTO NEGATIVE (NEGATIVE); LEUKOCYTE ESTERASE, URINE AUTO 3+ (NEGATIVE); MUCUS, URINE SMALL (NEGATIVE); NITRITE, URINE AUTO NEGATIVE (NEGATIVE); PROTEIN, URINE AUTO NEGATIVE (NEGATIVE); RBC, URINE AUTO 4 /HPF (0-3); SPECIFIC GRAVITY URINE AUTO 1.008 (1.002-1.035); SQUAMOUS EPITHELIAL CELL UR AU 0 /HPF (0-6); UROBILINOGEN, URINE AUTO 0.2 mg/dL (0.0-2.0); WBC, URINE AUTO 132 /HPF (0-3)
== END ==
LOC: M SMT 13:02
PROVIDERS: ATTEND Nurse Practitioner Women's Health
DX: R30.0 Dysuria (principal)

== ENCOUNTER → 2020-07-20 | Outpatient (REF) | payer MEDICARE, OTHER | LOC: M PLALAB 14:56 | PROVIDERS: ATTEND Nurse Practitioner Women's Health | DX: Z85.46 Personal history of malignant neoplasm of prostate (principal) ==

== ENCOUNTER → 2021-07-04 | Outpatient (REF) | payer MEDICARE, OTHER ==
[~2021-07-04] MED LIST changes: +GABA-282 PO; -GABA-843 PO; +OMEP40CA4 PO; -OMEP40CA97 PO
== END ==
LOC: M LAB REF 16:27
PROVIDERS: ATTEND Registered Nurse
DX: N39.0 Urinary tract infection, site not specified (principal)

== ENCOUNTER → 2021-07-10 | Outpatient (REF) | payer MEDICARE, OTHER | LOC: M LAB REF 17:41 | PROVIDERS: ATTEND Physician Assistant | DX: R31.0 Gross hematuria (principal) ==

== ENCOUNTER → 2021-07-13 | Outpatient (CLI) | payer MEDICARE, BC, OTHER ==
[2021-07-13 13:47] LABS: APPEARANCE, URINE CLEAR (CLEAR); BACTERIA, URINE AUTO NEGATIVE (NEGATIVE); BILIRUBIN, URINE AUTO NEGATIVE (NEGATIVE); BLOOD, URINE BLOOD 2+ (NEGATIVE); COLOR, URINE YELLOW (YELLOW); GLUCOSE, URINE (UA) AUTO NEGATIVE (NEGATIVE); KETONE, URINE AUTO NEGATIVE (NEGATIVE); LEUKOCYTE ESTERASE, URINE AUTO TRACE (NEGATIVE); MUCUS, URINE SMALL (NEGATIVE); NITRITE, URINE AUTO NEGATIVE (NEGATIVE); PROTEIN, URINE AUTO NEGATIVE (NEGATIVE); RBC, URINE AUTO 22 /HPF (0-3); SPECIFIC GRAVITY URINE AUTO 1.016 (1.002-1.035); SQUAMOUS EPITHELIAL CELL UR AU 0 /HPF (0-6); UROBILINOGEN, URINE AUTO 0.2 mg/dL (0.0-2.0); WBC, URINE AUTO 6 /HPF (0-3)
[2021-07-13 14:10] LABS: BLOOD UREA NITROGEN 13 MG/DL (7-18); CALCIUM LEVEL 9.5 MG/DL (8.8-10.2); CARBON DIOXIDE LEVEL 32 MEQ/L (21-32); CHLORIDE LEVEL 105 MEQ/L (98-107); CREATININE FOR GFR 0.99 MG/DL (0.70-1.30); GLOMERULAR FILTRATION RATE > 60.0 (>42); GLUCOSE, FASTING 141 MG/DL (70-100); POTASSIUM SERUM 5.2 MEQ/L (3.5-5.1); PROSTATIC SPECIFIC AG MONITOR 0.77 NG/ML (< 4.00); SODIUM LEVEL 141 MEQ/L (136-145)
== END ==
LOC: M PLALAB 09:49
PROVIDERS: ATTEND Nurse Practitioner Women's Health
DX: R31.0 Gross hematuria (principal); Z85.46 Personal history of malignant neoplasm of prostate; N39.0 Urinary tract infection, site not specified

== ENCOUNTER → 2021-07-20 | Outpatient (CLI) | payer MEDICARE, BC, OTHER ==
[~2021-07-20] MED LIST changes: +ISOVUE-370 76% 100ML VIAL ONE
== END ==
LOC: M PLAIMG 10:57
PROVIDERS: ATTEND Nurse Practitioner Women's Health
DX: R31.0 Gross hematuria (principal)
CPT/HCPCS: 74178; Q9967

== ENCOUNTER → 2022-02-28 | Outpatient (REF) | payer MEDICARE, OTHER ==
[~2022-02-28] MED LIST changes: -ISOVUE-370 76% 100ML VIAL ONE
[2022-02-28 13:35] LABS: APPEARANCE, URINE CLEAR (CLEAR); BACTERIA, URINE AUTO NEGATIVE (NEGATIVE); BILIRUBIN, URINE AUTO NEGATIVE (NEGATIVE); BLOOD, URINE BLOOD NEGATIVE (NEGATIVE); COLOR, URINE YELLOW (YELLOW); GLUCOSE, URINE (UA) AUTO NEGATIVE (NEGATIVE); KETONE, URINE AUTO NEGATIVE (NEGATIVE); LEUKOCYTE ESTERASE, URINE AUTO NEGATIVE (NEGATIVE); MUCUS, URINE SMALL (NEGATIVE); NITRITE, URINE AUTO NEGATIVE (NEGATIVE); PROTEIN, URINE AUTO NEGATIVE (NEGATIVE); RBC, URINE AUTO 0 /HPF (0-3); SPECIFIC GRAVITY URINE AUTO 1.014 (1.002-1.035); SQUAMOUS EPITHELIAL CELL UR AU 0 /HPF (0-6); UROBILINOGEN, URINE AUTO 0.2 mg/dL (0.0-2.0); WBC, URINE AUTO 0 /HPF (0-3)
== END ==
LOC: M SMT 12:59
PROVIDERS: ATTEND Urology
DX: Z87.448 Personal history of other diseases of urinary system (principal)
CPT/HCPCS: 81001; 88108; G0463

== ENCOUNTER → 2022-04-20 | Outpatient (REF) | payer MEDICARE, OTHER ==
[2022-04-20 18:17] LABS: APPEARANCE, URINE MANUAL HAZY (CLEAR); COLOR, URINE MANUAL YELLOW (YELLOW)
[2022-04-20 18:21] LABS: BILIRUBIN, URINE MANUAL NEGATIVE (NEGATIVE); BLOOD URINE MANUAL POSITIVE (NEGATIVE); GLUCOSE, URINE (UA) MANUAL NEGATIVE (NEGATIVE); KETONE, URINE MANUAL NEGATIVE (NEGATIVE); LEUKOCYTE ESTERASE, URINE MAN POSITIVE (NEGATIVE); NITRITE, URINE MANUAL NEGATIVE (NEGATIVE); PROTEIN, URINE MANUAL 1+ mg/dL (NEGATIVE); SPECIFIC GRAVITY,URINE MANUAL 1.015 (1.002-1.035); UROBILINOGEN, URINE MANUAL NORMAL (NORMAL)
[2022-04-20 18:44] LABS: BACTERIA, URINE LARGE AMOUNT; HYALINE CAST, URINE NONE SEEN /lpf (0-1); RBC, URINE NONE SEEN /hpf (0-3); SQUAMOUS EPITHELIAL CELL URINE SMALL AMOUNT /hpf (SMALL AMT); WBC, URINE TNTC /hpf (0-3)
== END ==
LOC: M SMT 17:14
PROVIDERS: ATTEND Urology
DX: R30.0 Dysuria (principal)

== ENCOUNTER → 2022-08-31 | Outpatient (CLI) | payer MEDICARE, BC, OTHER | LOC: M PLALAB 10:53 | PROVIDERS: ATTEND Urology | DX: Z85.46 Personal history of malignant neoplasm of prostate (principal) ==

== ENCOUNTER → 2022-09-27 | Outpatient (REF) | payer MEDICARE, OTHER ==
[2022-09-27 20:06] LABS: ANISOCYTOSIS 2+; BLAST CELLS 1 % (0-0); EOSINOPHILS 2 % (0-3); LYMPHOCYTES 16 % (16-44); METAMYELOCYTES 1 % (0-0); MONOCYTES 4 % (0-5); MYELOCYTES 1 % (0-0); NEUTROPHILS 72 % (28-66); PLATELET ESTIMATE NORMAL (NORMAL); PROMYELOCYTES 1 % (0-0)
[2022-09-27 20:07] LABS: GIANT PLATELETS 1+
== END ==
LOC: M LAB REF 16:27
PROVIDERS: ATTEND Physician Assistant Medical
DX: D72.819 Decreased white blood cell count, unspecified (principal)

== ENCOUNTER 2023-01-22 13:15 | Outpatient (RCR) | payer MEDICARE, OTHER | END 2023-02-16 | LOC: M PT 13:15 | PROVIDERS: ATTEND Physician Assistant Medical | DX: M54.50 Low back pain, unspecified (principal); E11.610 Type 2 diabetes mellitus with diabetic neuropathic arthropathy ==

== ENCOUNTER → 2023-11-15 | Outpatient (CLI) | payer MEDICARE, BC ==
[~2023-11-15] MED LIST changes: +EZET10TA58 PO; +ISOVUE-300 61% 100ML VIAL As Ordered ONE; +LIDOCAINE 1% MDV 20ML VIAL As Ordered ONE; +TRIAMCINOLONE ACETONIDE SUSP 40MG/ML 1ML VIAL As Ordered ONE; -ZETI10TA16 PO
== END ==
LOC: M RAD 14:17
PROVIDERS: ATTEND Orthopaedic Surgery
DX: M16.11 Unilateral primary osteoarthritis, right hip (principal)
CPT/HCPCS: 20610; 77002; J3301; Q9967

== ENCOUNTER → 2024-02-12 | Outpatient (CLI) | payer MEDICARE, BC ==
[~2024-02-12] MED LIST changes: -ISOVUE-300 61% 100ML VIAL As Ordered ONE; -LIDOCAINE 1% MDV 20ML VIAL As Ordered ONE; -TRIAMCINOLONE ACETONIDE SUSP 40MG/ML 1ML VIAL As Ordered ONE
== END ==
LOC: M RAD 13:06
PROVIDERS: ATTEND Physician Assistant Medical
DX: M25.551 Pain in right hip (principal); R29.6 Repeated falls

== ENCOUNTER → 2024-03-13 | Outpatient (CLI) | payer MEDICARE, BC | LOC: M PLALAB 15:53 | PROVIDERS: ATTEND Urology | DX: Z85.46 Personal history of malignant neoplasm of prostate (principal) ==

== ENCOUNTER → 2024-10-01 | Outpatient (CLI) | payer MEDICARE, BC ==
[~2024-10-01] MED LIST changes: +GABA-1172 PO; -GABA-282 PO; +NYST1POW3 TOP; -NYST1POW9 TOP
== END ==
LOC: M WUC 14:20
PROVIDERS: ATTEND Student in an Organized Health Care Education/Training Program
DX: M85.812 Other specified disorders of bone density and structure, left shoulder (principal); M25.512 Pain in left shoulder

== ENCOUNTER → 2024-10-16 | Outpatient (REF) | payer MEDICARE, BC ==
[2024-10-16 18:58] LABS: APPEARANCE, URINE CLOUDY (CLEAR); BACTERIA, URINE AUTO 1+ (NEGATIVE); BILIRUBIN, URINE AUTO NEGATIVE (NEGATIVE); BLOOD, URINE BLOOD 2+ (NEGATIVE); COLOR, URINE YELLOW (YELLOW); GLUCOSE, URINE (UA) AUTO NEGATIVE (NEGATIVE); KETONE, URINE AUTO NEGATIVE (NEGATIVE); LEUKOCYTE ESTERASE, URINE AUTO 3+ (NEGATIVE); NITRITE, URINE AUTO POSITIVE (NEGATIVE); PROTEIN, URINE AUTO 2+ mg/dL (NEGATIVE); RBC, URINE AUTO 18 /HPF (0-3); SQUAMOUS EPITHELIAL CELL UR AU 0 /HPF (0-6); UROBILINOGEN, URINE AUTO 0.2 mg/dL (0.0-2.0); WBC, URINE AUTO TNTC /HPF (0-3)
== END ==
LOC: M SMT 17:22
PROVIDERS: ATTEND Urology
DX: R30.0 Dysuria (principal)

== ENCOUNTER → 2024-10-20 | Outpatient (CLI) | payer MEDICARE, BC | LOC: M PLALAB 11:53 | PROVIDERS: ATTEND Urology | DX: Z85.46 Personal history of malignant neoplasm of prostate (principal) ==

== ENCOUNTER → 2024-11-05 | Outpatient (CLI) | payer MEDICARE, BC ==
[~2024-11-05] MED LIST changes: +ISOVUE-300 61% 100ML VIAL As Ordered ONE; +LIDOCAINE 1% MDV 20ML VIAL As Ordered ONE; +TRIAMCINOLONE ACETONIDE SUSP 40MG/ML 1ML VIAL As Ordered ONE
== END ==
LOC: M RAD 13:25
PROVIDERS: ATTEND Orthopaedic Surgery
DX: M16.11 Unilateral primary osteoarthritis, right hip (principal)
CPT/HCPCS: 20610; 77002; J3301; Q9967

== ENCOUNTER 2025-03-18 11:21 | Inpatient (IN) | payer MEDICARE, BC ==
[~2025-03-18] VITALS: Ht 167.6 cm; Wt 93.0 kg
[~2025-03-18 11:21] MED LIST changes: -ISOVUE-300 61% 100ML VIAL As Ordered ONE; -LIDOCAINE 1% MDV 20ML VIAL As Ordered ONE; +SENN-225 PO; -SENO8.6T5 PO; -TRIAMCINOLONE ACETONIDE SUSP 40MG/ML 1ML VIAL As Ordered ONE
[2025-03-18] MEDS ORDERED: BISACODYL 5 MG TAB PO PRN (12:35)
[2025-03-18] MEDS ORDERED: BISACODYL 10 MG SUPP PR PRN (12:35)
[2025-03-18] MEDS ORDERED: MOM 30 ML SUSPENSION UDC PO PRN (12:35)
[2025-03-18] MEDS ORDERED: GLUCOSE 4 GM CHEW PO PRN (12:50)
[2025-03-18] MEDS ORDERED: GLUCAGON INJ 1 MG VIAL SC PRN (12:50)
[2025-03-18] MEDS ORDERED: DEXTROSE 50% 50 ML SYRINGE IV PRN (12:50)
[2025-03-18] MEDS ORDERED: ONDANSETRON 4MG ORAL DISINTEGRATING TAB SL PRN (12:50)
[2025-03-18 13:10] VITALS: BP 147/80; TEMP 98.6; O2SAT 97
[2025-03-18] MEDS ORDERED: TOPI-21 PO (14:18)
[2025-03-18] MEDS ORDERED: HYDR12.55 PO (14:18)
[2025-03-18] MEDS ORDERED: SENN-23 PO (14:18)
[2025-03-18] MEDS ORDERED: OXYC10TA12 PO (14:18)
[2025-03-18] MEDS ORDERED: EZET10TA21 PO (14:18)
[2025-03-18] MEDS ORDERED: ACET32TAB PO (14:18)
[2025-03-18] MEDS ORDERED: MIRA3350 PO (14:18)
[2025-03-18] MEDS ORDERED: LORA-1042 PO (14:18)
[2025-03-18] MEDS ORDERED: ATOR1TAB19 PO (14:18)
[2025-03-18] MEDS ORDERED: ASPI81TA26 PO (14:18)
[2025-03-18] MEDS ORDERED: PANT-23 PO (14:18)
[2025-03-18] MEDS ORDERED: FERR324T2 PO (14:18)
[2025-03-18] MEDS ORDERED: OXYC-517 PO (14:18)
[2025-03-18] MEDS ORDERED: HOME MED LIST COMPLETE! XX SCH (14:25)
[2025-03-18] MEDS: INSULIN LISPRO (NovoLOG) PER UNIT SC SCH (16:52)
[2025-03-18 20:00] VITALS: BP 140/78; TEMP 98.6; O2SAT 97
[2025-03-18] MEDS: LORATADINE 10 MG TAB PO SCH (21:33)
[2025-03-18] MEDS: TOPIRAMATE 25 MG TAB PO SCH (21:33)
[2025-03-18] MEDS: DOCUSATE SODIUM 100 MG CAPSULE PO SCH (21:33)
[2025-03-18] MEDS: APIXABAN 5 MG TAB PO SCH (21:33)
[2025-03-18] MEDS: SENNA 8.6 MG TAB PO SCH (21:34)
[2025-03-18] MEDS: METOPROLOL TART 12.5 MG PER 1/2 TAB PO SCH (21:35)
[2025-03-18] MEDS: ACETAMINOPHEN 500 MG TAB PO SCH (21:35)
[2025-03-19] MEDS ORDERED: UNRESOLVED CLARIFICATION ENTRY XX SCH (00:01)
[2025-03-19 04:00] VITALS: BP 127/69; TEMP 100.5; O2SAT 94
[2025-03-19 06:22] VITALS: TEMP 98.9
[2025-03-19 07:14] LABS: BASO # 0.0 10^3/uL (0.0-0.2); BASO % 0.5 % (0.0-1.0); EOS # 0.2 10^3/uL (0.0-0.5); EOS % 2.1 % (0.0-3.0); LYMPH # 0.6 10^3/uL (1.5-5.0); LYMPH % 7.2 % (24.0-44.0); MONO # 0.8 10^3/uL (0.0-0.8); MONO % 9.9 % (2.0-8.0); NEUTROPHILS # 6.5 10^3/uL (1.5-8.5); NEUTROPHILS % 79.1 % (36.0-66.0); PLATELET COUNT, AUTOMATED 341 10^3/uL (150-450)
[2025-03-19 07:37] LABS: ALT/SGPT 12.0 U/L (7.0-40); AST/SGOT 19.0 U/L (<34); CALCIUM LEVEL 8.7 MG/DL (8.3-10.6); CARBON DIOXIDE LEVEL 27.0 MMOL/L (20-31); CHLORIDE LEVEL 105.0 MMOL/L (98-107); CREATININE FOR GFR 0.84 MG/DL (0.70-1.30); GLOMERULAR FILTRATION RATE 88.7 (>42); POTASSIUM SERUM 4.6 MMOL/L (3.5-5.1); SODIUM LEVEL 143.0 MMOL/L (136-145)
[2025-03-19] MEDS: EZETIMIBE 10 MG TABLET PO SCH (08:17)
[2025-03-19] MEDS: GABAPENTIN 300 MG CAP PO SCH (08:18)
[2025-03-19] MEDS: ASPIRIN 81 MG ENTERIC TABLET PO SCH (08:18)
[2025-03-19] MEDS: OMEPRAZOLE 20MG CAP PO SCH (08:18)
[2025-03-19] MEDS: MIRALAX *UNIT DOSE* 17 GM PACKET PO SCH (08:21)
[2025-03-19 12:00] VITALS: BP 111/63; TEMP 98.8; O2SAT 95
[2025-03-19 20:00] VITALS: BP 115/66; TEMP 98.6; O2SAT 96
[2025-03-19] MEDS: TAMSULOSIN 0.4 MG CAP PO SCH (21:40)
[2025-03-19] MEDS: ATORVASTATIN 10 MG TAB PO SCH (21:41)
[2025-03-20 04:00] VITALS: BP 97/56; TEMP 99; O2SAT 94
[2025-03-20] MEDS: FERROUS GLUCONATE 324 MG TAB PO SCH (09:23)
[2025-03-20 12:08] VITALS: BP 117/67; TEMP 98.4; O2SAT 96
[2025-03-20 19:42] VITALS: BP 121/64; TEMP 98.1; O2SAT 97
[2025-03-20] MEDS: SENNA 8.6 MG TAB PO SCH (20:12)
[2025-03-21 03:25] VITALS: BP 121/61; TEMP 98; O2SAT 96
[2025-03-21 11:56] VITALS: BP 109/66; TEMP 98.9; O2SAT 94
[2025-03-21 19:25] VITALS: BP 127/63; TEMP 98.1; O2SAT 97
[2025-03-22 03:31] VITALS: BP 123/65; TEMP 96.5; O2SAT 95
[2025-03-22 11:53] VITALS: BP 111/69; TEMP 98.3; O2SAT 97
[2025-03-22 20:00] VITALS: BP 109/61; TEMP 97.7; O2SAT 97
[2025-03-23 04:00] VITALS: BP 112/58; TEMP 97.8; O2SAT 97
[2025-03-23 12:00] VITALS: BP 104/60; TEMP 98; O2SAT 95
[2025-03-23 19:54] VITALS: BP 133/67; TEMP 98; O2SAT 97
[2025-03-24 03:38] VITALS: BP 118/61; TEMP 98.4; O2SAT 95
[2025-03-24 12:05] VITALS: BP 133/77; TEMP 97.4; O2SAT 97
[2025-03-24 19:31] VITALS: BP 121/70; TEMP 98.4; O2SAT 95
[2025-03-25 03:33] VITALS: BP 119/58; TEMP 98; O2SAT 95
[2025-03-25 12:04] VITALS: BP 101/64; TEMP 97.7; O2SAT 95
[2025-03-25] MEDS ORDERED: ACET-683 PO (17:21)
[2025-03-25] MEDS ORDERED: GLIP2.5T46 PO (17:21)
[2025-03-25] MEDS ORDERED: OMEP-173 PO (17:21)
[2025-03-25] MEDS ORDERED: ELIQ5TAB PO (17:21)
[2025-03-25] MEDS ORDERED: FERR32TA PO (17:21)
[2025-03-25 20:00] VITALS: BP 104/60; TEMP 98.1; O2SAT 94
[2025-03-26 04:00] VITALS: BP 113/60; TEMP 97.5; O2SAT 96
[2025-03-26 08:25] VITALS: BP 113/58
[2025-03-26 11:45] VITALS: BP 121/63; TEMP 98.1; O2SAT 96
== END 2025-03-26 12:15 | disposition home health service (06) | DRG 560 ==
LOC: M PM&R 13:10
PROVIDERS: ADMIT Physical Medicine & Rehabilitation; ATTEND Physical Medicine & Rehabilitation
DX: Z47.1 Aftercare following joint replacement surgery (principal); I69.351 Hemiplegia and hemiparesis following cerebral infarction affecting right dominant side; M16.11 Unilateral primary osteoarthritis, right hip; I25.10 Atherosclerotic heart disease of native coronary artery without angina pectoris; E11.40 Type 2 diabetes mellitus with diabetic neuropathy, unspecified; K21.9 Gastro-esophageal reflux disease without esophagitis; I10 Essential (primary) hypertension; G43.909 Migraine, unspecified, not intractable, without status migrainosus; Z85.46 Personal history of malignant neoplasm of prostate; K59.00 Constipation, unspecified; E66.9 Obesity, unspecified; Z68.33 Body mass index [BMI] 33.0-33.9, adult; Z95.2 Presence of prosthetic heart valve; Z96.643 Presence of artificial hip joint, bilateral; Z96.652 Presence of left artificial knee joint; Z79.899 Other long term (current) drug therapy; Z79.82 Long term (current) use of aspirin; Z88.8 Allergy status to other drugs, medicaments and biological substances; Z92.3 Personal history of irradiation; I48.0 Paroxysmal atrial fibrillation; Z79.01 Long term (current) use of anticoagulants

== ENCOUNTER → 2025-05-28 | Outpatient (CLI) | payer MEDICARE, BC ==
[~2025-05-28] MED LIST changes: +ACET-683 PO; +ACET32TAB PO; +ASPI81TA26 PO; +ATOR1TAB19 PO; +EZET10TA57 PO; +FERR324T2 PO; +FERR32TA PO; +GLIP2.5T46 PO; +HYDR12.55 PO; +LORA-1042 PO; +OMEP-173 PO; +OXYC-517 PO; +OXYC10TA12 PO; +PANT-23 PO; +SENN-23 PO; +TOPI-21 PO
== END ==
LOC: M PLALAB 15:32
PROVIDERS: ATTEND Urology
DX: C61 Malignant neoplasm of prostate (principal)